=== PATIENT | male | born 1940 | race Caucasian/White ===

== ENCOUNTER → 2017-10-17 | Day surgery (SDC) | payer OTHER, MEDICARE ==
[2017-10-15 09:23] LABS: BASOPHILS # (AUTO) 0.1 (0.0-0.1); BASOPHILS % 1.2 % (0.0-1.0); EOSINOPHILS # (AUTO) 0.3 (0.0-0.4); EOSINOPHILS % 6.6 % (0.0-6.0); HEMATOCRIT 42.4 % (38.2-49.6); HEMOGLOBIN 14.4 g/dL (14.0-18.0); LYMPHOCYTES # (AUTO) 2.1 (1.0-3.2); LYMPHOCYTES % 41.6 % (18.0-39.1); MEAN CORPUSCULAR HEMOGLOBIN 31.6 pg (28-32); MEAN CORPUSCULAR VOLUME 93.2 fL (81-99); MONOCYTES # (AUTO) 0.6 (0.2-0.8); MONOCYTES % 11.2 % (4.4-11.3); NEUTROPHILS % 39.2 % (38.7-80.0); PLATELET COUNT 232 x10e3/uL (140-360); RED BLOOD COUNT 4.55 x10e6/uL (4.3-5.7); RED CELL DISTRIBUTION WIDTH 12.9 % (11.7-14.4)
--- NOTE | 2017-10-15 09:31 | Diagnostic Imaging Report ---
PROCEDURE: X-RAY CHEST, TWO VIEWS COMPARISON: None. INDICATIONS: PREOPERATIVE CHEST XRAY FOR FOOT SURGERY FINDINGS: The lungs are hyperinflated with flattening of the diaphragms and increased AP diameter of the chest. No focal airspace consolidation. Geographic high attenuation lesion along the left lateral thorax is consistent with a calcified pleural plaque, additional calcified pleural plaques are noted along the right hemidiaphragm. No airspace consolidation, pleural effusion, or pneumothorax. Tortuous thoracic aorta with an otherwise normal cardiomediastinal contour. No acute osseous abnormality. Mild reversal of the expected thoracic kyphosis may be attributable to degenerative disc changes. CONCLUSION: No acute cardiopulmonary abnormality. Hyperinflated lungs suggestive of COPD/emphysema. 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 Dictated by: Vinod Rose M.D. on 10/15/2017 at 9:36 Electronically approved by: Vinod Rose M.D. on 10/15/2017 at 9:36
[2017-10-15 09:37] LABS: ANION GAP 12.9 mmol/L (8-16); BLOOD UREA NITROGEN 16 mg/dL (7-26); BUN/CREATININE RATIO 14 (6-25); CALCIUM 9.8 mg/dL (8.4-10.2); CARBON DIOXIDE 30 mmol/L (22-29); CHLORIDE 101 mmol/L (98-107); CREATININE, SERUM 1.11 mg/dL (0.72-1.25); EST GLOMERULAR FILTRATION RATE > 60 ML/MIN (60-); GLUCOSE 102 mg/dL (74-118); POTASSIUM 3.9 mmol/L (3.5-5.1); SODIUM 140 mmol/L (136-145)
[~2017-10-17] MED LIST: BETAMETHASONE DISODIUM PHOS 6 MG/ML VIAL ONE; BUPIVACAINE HCL 0.5% INJ 30 ML VIAL INJ ONE; CEFAZOLIN SOD 1 GM VIAL ONE; DEXAMETHASONE SOD PHOS INJ 4 MG/ML VIAL ONE; EPHEDRINE SULFATE INJ 50 MG/10 ML SYR ONE; FENTANYL CITRATE/PF 100MCG/2 ML INJ ONE; KETOROLAC TROMETHAMINE 30 MG/ML VIAL ONE; LIDOCAINE HCL 1% LOCAL INJ 20 ML VIAL ONE; LIDOCAINE HCL 2% LOCAL INJ 5 ML SDV VIAL INJ ONE; LISINOPRIL10 MG PO; MIDAZOLAM HCL 2 MG/2 ML VIAL ONE; MUPIROCIN 2% OINT 22 GM TUBE ONE; ONDANSETRON HCL INJ 2 MG/ML VIAL ONE; PROPOFOL IV EMULSION 10 MG/ML 20 ML VIAL ONE; SEVOFLURANE INHAL SOLN 250 ML PEN BTL ONE
--- NOTE | 2017-10-17 10:13 | Operative Report ---
DATE OF PROCEDURE: October 17, 2017 PREOPERATIVE DIAGNOSES 1. Painful hallux valgus deformity, left foot. 2. Painful contracted hammertoe 2nd digit, left. 3. Painful contracted hammertoe 3rd digit, left. 4. Painful plantar calcaneal heel spur, left foot. 5. Painful tarsal tunnel syndrome, left foot. POSTOPERATIVE DIAGNOSES 1. Painful hallux valgus deformity, left foot. 2. Painful contracted hammertoe 2nd digit, left. 3. Painful contracted hammertoe 3rd digit, left. 4. Painful plantar calcaneal heel spur, left foot. 5. Painful tarsal tunnel syndrome, left foot. OPERATIVE PROCEDURES 1. Mario bunionectomy with screw fixation, left. 2. Arthroplasty of 2nd digit with K-wire fixation of 2nd toe, left foot. 3. Arthroplasty of 3rd digit with K-wire fixation of 3rd toe, left foot. 4. Resection of plantar calcaneal heel spur, left foot. 5. Neurolysis of tibial nerve, left foot. 6. Neurolysis of medial plantar nerve, left foot. 7. Neurolysis of lateral plantar nerve, left foot. 8. Intraoperative use of fluoroscopy. 9. Trigger point shot of cortisone. 10. Application of posterior splint. ANESTHESIA: General. HEMOSTASIS: Pneumatic thigh tourniquet. PROCEDURE IN DETAIL: Patient was taken into the operating room and placed on the operating room table in the supine position. Following induction of general anesthesia by the anesthesiologist, Webril wraps were placed on the patient's left thigh followed by application of a left thigh tourniquet. The left lower extremity was then prepped and draped in the usual aseptic manner. The following procedure was then performed: PROCEDURE #1: Mario bunionectomy with screw fixation, left foot. Attention was directed to the dorsomedial aspect of the 1st MPJ joint where a 6 cm linear incision was performed. The incision was deepened down to the joint capsule. A longitudinal capsulotomy was then performed exposing the dorsomedial exostosis of the 1st metatarsal head. Via use of an oscillating saw, dorsomedial exostosis was excised from the operation site in toto. A V-osteotomy was then performed from medial to lateral. Capital fragment was then transpositioned laterally. Upon adequate surgical and anatomical reduction utilizing proper AO technique, a 2 x 16 mm cortical screw and a 2 x 18 mm cortical screw was used to achieve stability of the osteotomy site utilizing proper AO technique. All redundant bone medial was then excised via the use of an oscillating saw and rotating bur. PROCEDURES #2 AND #3: Arthroplasty, 2nd and 3rd digits, left foot with K-wire fixation. Attention was then directed to the dorsal aspect of the 2nd and 3rd toes proximal interphalangeal joint where a 3 cm linear incision was performed. The incision was deepened down to the joint capsule. A transverse capsulotomy was then performed exposing the head of the proximal phalanx. Via the use of an oscillating saw, the head of the proximal phalanxes were excised from the operation site in toto. The 2nd and 3rd toes were still noted to be contracted. So, a 0.045 K-wire was introduced crossing the metatarsophalangeal joint to achieve proper anatomical reduction. PROCEDURES #4: Resection of plantar calcaneal heel spur, left foot. Attention was then directed to the medial aspect of the left heel where a 4-6 cm linear incision was performed. Incision was deepened down to the plantar fascial level. Plantar fascia was then clearly visualized. The medial one-half of the plantar fascia was resected from its insertion site exposing the plantar calcaneal spur. Utilizing a reciprocating bur, the plantar calcaneal spur was excised from the operation site in toto. PROCEDURE #5: Neurolysis of tibial nerve, left foot. Attention was then directed to the medial canal where a curvilinear incision was performed posterior to the medial malleolus. The incision was deepened via sharp and blunt dissection being careful to retract any vital structures and ligating superficial vessels as necessary. Once the level of the flexor retinaculum was reached, utilizing meticulous dissection, the flexor retinaculum was then cut exposing the tibial nerve. The tibial nerve was then freed from any type of adhesions via blunt dissection. The incision was then carried distally into the lali pedis. The lali pedis was freed. PROCEDURES #7 AND #8: Were performed which were neurolysis of the medial and lateral plantar nerves. The tibial nerve was noted to be bifurcated to the medial, lateral and plantars, and all adhesions surrounding the medial plantar nerves were released via blunt dissection. All areas were then copiously flushed with sterile antibiotic solution and suctioned. PROCEDURE #8: Intraoperative use of fluoroscopy was then used to make sure proper alignment fixation was achieved and proper resection of plantar calcaneal spur. Closure was then obtained utilizing 3-0 Vicryl, 4-0 Vicryl and 4-0 nylon for capsule, subcutaneous tissue and skin respectively. PROCEDURE #9: Trigger point shot of cortisone was then given to the 1st and 3rd interspace of the left foot. Also, the medial aspect of left heel. Then approximately 20 mL of 0.5% plain Marcaine plus 10 mL of 1% Xylocaine plain were used to achieve local anesthesia to the above-mentioned surgical area. Sterile dressing was applied. Upon release of the thigh tourniquet, blood hyperemia was noted to be immediate to all digits of the patient's left foot. PROCEDURE #10: Application of posterior splint. A properly placed posterior splint was then applied keeping the foot at 90 degrees with respect to the leg to try to prevent any type of postop complications. The patient was then transferred from the OR to the recovery room with vital signs stable and neurovascular status intact. No intraoperative complications were encountered. Blood loss from the surgery was minimal. Patient to remain nonweightbearing with the aid of crutches. Keep the foot elevated. Is to apply an ice pack to the ankle joint areas. Job#: [id number] SANIA
--- NOTE | 2017-10-17 10:26 | Diagnostic Imaging Report ---
PROCEDURE:X-RAY LEFT FOOT, TWO VIEWS COMPARISON:None. INDICATIONS:POST OPERATIVE LEFT FOOT SURGERY FINDINGS: See conclusion. CONCLUSION: AP and lateral post-operative views of the left foot with overlying bandage material show post-surgical changes of a bunionectomy and arthroplasty with wire and screw through the distal first metatarsal and second-third phalanges. There is surrounding soft-tissue swelling consistent with recent surgery. There is a drain present. Please refer to performing physician's notes for full details of this procedure. King Riggins D.O. Dictated by: King Riggins D.O. on 10/17/2017 at 10:31 Electronically approved by: King Riggins D.O. on 10/17/2017 at 10:31
== END | disposition home or self-care (01) ==
LOC: OR 05:02
PROVIDERS: ATTEND Podiatrist Foot Surgery
DX: M20.12 Hallux valgus (acquired), left foot (principal); M20.42 Other hammer toe(s) (acquired), left foot; M77.32 Calcaneal spur, left foot; G57.52 Tarsal tunnel syndrome, left lower limb; G58.8 Other specified mononeuropathies; I10 Essential (primary) hypertension; H91.90 Unspecified hearing loss, unspecified ear; Z01.810 Encounter for preprocedural cardiovascular examination; Z01.812 Encounter for preprocedural laboratory examination; Z01.818 Encounter for other preprocedural examination
CPT/HCPCS: 28035; 28119; 28285 ×2; 28296; 36415; 64704 ×2; 71046; 73620; 80048; 85025; 93005; C1713 ×2; J0690; J0720; J1100; J1885; J2001 ×2; J2250; J2405

== ENCOUNTER → 2018-01-22 | Day surgery (SDC) | payer OTHER, MEDICARE ==
[2018-01-16 09:37] LABS: BASOPHILS % 0.7 % (0.0-1.0); EOSINOPHILS # (AUTO) 0.5 (0.0-0.4); EOSINOPHILS % 9.8 % (0.0-6.0); HEMATOCRIT 41.2 % (38.2-49.6); HEMOGLOBIN 13.7 g/dL (14.0-18.0); LYMPHOCYTES # (AUTO) 1.9 (1.0-3.2); LYMPHOCYTES % 42.2 % (18.0-39.1); MEAN CORPUSCULAR HEMOGLOBIN 31.5 pg (28-32); MEAN CORPUSCULAR HGB CONC 33.3 g/dL (31-35); MEAN CORPUSCULAR VOLUME 94.7 fL (81-99); MONOCYTES # (AUTO) 0.5 (0.2-0.8); MONOCYTES % 10.9 % (4.4-11.3); NEUTROPHILS # (AUTO) 1.7 (2.1-6.9); NEUTROPHILS % 36.2 % (38.7-80.0); PLATELET COUNT 233 x10e3/uL (140-360); RED BLOOD COUNT 4.35 x10e6/uL (4.3-5.7); RED CELL DISTRIBUTION WIDTH 13.2 % (11.7-14.4)
[2018-01-16 09:55] LABS: ANION GAP 11.9 mmol/L (8-16); BLOOD UREA NITROGEN 14 mg/dL (7-26); BUN/CREATININE RATIO 14 (6-25); CALCIUM 9.5 mg/dL (8.4-10.2); CARBON DIOXIDE 27 mmol/L (22-29); CHLORIDE 104 mmol/L (98-107); CREATININE, SERUM 1.01 mg/dL (0.72-1.25); EST GLOMERULAR FILTRATION RATE > 60 ML/MIN (60-); GLUCOSE 105 mg/dL (74-118); POTASSIUM 3.9 mmol/L (3.5-5.1); SODIUM 139 mmol/L (136-145)
--- NOTE | 2018-01-16 11:07 | Diagnostic Imaging Report ---
PROCEDURE: Frontal and lateral views of the chest. COMPARISON: Chest radiograph 10/15/17. INDICATIONS: PREOPERATIVE CHEST XRAY FOR FOOT SURGERY FINDINGS: Lines/tubes: None. Lungs: The lungs are hyperinflated. There is no evidence of pneumonia or pulmonary edema. Pleura: Findings of calcified pleural plaques are again noted, including in the left lateral thorax and right hemidiaphragm. There is no pleural effusion or pneumothorax. Heart and mediastinum: The cardiomediastinal silhouette is unchanged. Bones: No acute bony abnormality. IMPRESSION: No acute radiographic abnormality. Emphysematous changes of the lungs. 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 Dictated by: ADAN SINHA M.D. on 01/16/2018 at 11:16 Electronically approved by: AADN SINHA M.D. on 01/16/2018 at 11:16
[~2018-01-22] MED LIST changes: +CEFAZOLIN SOD 2 GM/D5W 50ML 0 ML IV ONE; -EPHEDRINE SULFATE INJ 50 MG/10 ML SYR ONE; -MUPIROCIN 2% OINT 22 GM TUBE ONE; +NEOSTIGMINE 1 MG/ML 10ML VIAL ONE
--- NOTE | 2018-01-22 09:36 | Diagnostic Imaging Report ---
PROCEDURE:X-RAY RIGHT FOOT, TWO VIEWS COMPARISON:None. INDICATIONS:HAMERTOE SX, BUNIONECTOMY FINDINGS: See conclusion. CONCLUSION: AP and lateral post-operative views of the right foot with overlying bandage material show post-surgical changes with surgical screws traversing the distal first metatarsal and surgical pins traversing the phalanges and distal metatarsals of the second and third rays. There is surrounding soft-tissue swelling consistent with recent surgery. Please refer to performing physician's notes for full details of this procedure. Dictated by: Vinod Rose M.D. on 01/22/2018 at 9:45 Electronically approved by: Vinod Rose M.D. on 01/22/2018 at 9:45
[2018-01-22 09:50] VITALS: BP 138/92
--- NOTE | 2018-01-22 12:46 | Operative Report ---
DATE OF PROCEDURE: January 22, 2018 PREOPERATIVE DIAGNOSES: 1. Painful hallux valgus deformity right foot. 2. Painful contracted hammertoe 2nd digit right foot. 3. Painful contracted hammertoe 3rd digit right foot. 4. Painful plantar calcaneal heel spur right foot. 5. Painful tarsal tunnel syndrome right foot. POSTOPERATIVE DIAGNOSES: 1. Painful hallux valgus deformity right foot. 2. Painful contracted hammertoe 2nd digit right foot. 3. Painful contracted hammertoe 3rd digit right foot. 4. Painful plantar calcaneal heel spur right foot. 5. Painful tarsal tunnel syndrome right foot. OPERATIVE PROCEDURES: 1. Mario bunionectomy with screw fixation right foot. 2. Arthroplasty 2nd digit with K-wire fixation. 3. Arthroplasty 3rd digit with K-wire fixation. 4. Resection of plantar calcaneal spur. 5. Neurolysis tibial nerve. 6. Neurolysis medial plantar nerve. 7. Neurolysis lateral plantar nerve. 8. Intraoperative use of fluoroscopy. 9. Trigger point shot of cortisone. 10. Application of posterior splint. ANESTHESIA: General. HEMOSTASIS: Pneumatic thigh tourniquet at 350 mmHg. PROCEDURE IN DETAIL: Patient was taken into the operating room and placed on the operating room table in a supine position. Following induction of general anesthesia by the anesthesiologist, Webril wrap was placed on the patient's right thigh followed by application of a right thigh tourniquet. The right lower extremity was then prepped and draped in the usual aseptic manner, and the following procedure was then performed. Procedure number 1, Mario bunionectomy with screw fixation right foot. Attention was directed to the dorsomedial aspect of the 1st MPJ where a 6 cm linear incision was performed. The incision was deepened via sharp and blunt dissection, being careful to retract vital structures and ligate superficial vessels as necessary. Once the level of the capsule was reached, a longitudinal capsulotomy was then performed, exposing a dorsomedial exostosis to the 1st metatarsal head. Via the use of an oscillating saw and rotating bur, the dorsomedial exostosis was excised from the operation site in toto. A medial and lateral release was then performed consisting of a fibular sesamoidal ligament release and adductor tendon release. A V-osteotomy was then performed to the capital fragment. The capital fragment was then transported laterally, and utilizing proper AO technique, a 2.0, 18 mm cortical screw times 2 was used to achieve stability of the osteotomy site. All redundant bone medially was excised via the use of an oscillating saw and rotating bur. Procedures 2 and 3, arthroplasty 2nd and 3rd digits with K-wire fixation. Attention was then directed to the dorsal aspect of the above-mentioned toes overlying the proximal interphalangeal joint where a 3 cm linear incision was performed. The incision was deepened down to the joint capsule. A transverse capsulotomy was then performed, exposing the head of the proximal phalanx. Via the use of an oscillating saw, the heads of the proximal phalanxes were excised from the operation site in toto. Toes were still noted to be contracted. So, a 0.045 K-wire was introduced, crossing the metatarsophalangeal joint to achieve proper anatomical reduction. Procedure number 4, resection of plantar calcaneal heel spur. Attention was then directed to the medial aspect of the right heel where a 4 to 5 cm linear incision was performed. The incision was deepened down to the plantar fascial level. The plantar fascia was then clearly visualized. The medial one-half of the plantar fascia was then resected, and utilizing a reciprocating bur, the plantar calcaneal spur was smoothed down and excised. Procedures number 5, 6 and 7, neurolysis tibial nerve, neurolysis medial plantar nerve and neurolysis lateral plantar nerve. Attention was then directed to the medial aspect of the right talotibial joint where a curvilinear incision was performed posterior to the medial malleolus. The incision was then deepened via sharp and blunt dissection, being careful to retract vital structures and ligate any superficial vessels as necessary. Once the level of the flexor retinaculum was reached, utilizing meticulous dissection, the retinaculum was cut, exposing the tibial nerve. Tibial nerve was then neurolysed and freed from any adhesions via blunt dissection. The incision was then carried down to the lali pedis. The lali pedis was then cut utilizing Metzenbaum scissors, and the tibial nerve was then followed until the medial and lateral peroneal nerves were divided and all adhesions were freed via blunt dissection. All areas were then copiously flushed with sterile antibiotic solution and suctioned. Procedure number 8. Intraoperative use of fluoroscopy was then used to make sure proper alignment and fixation were achieved. Closure was then obtained utilizing 3-0 Vicryl, 4-0 Vicryl and 4-0 nylon for capsule, subcutaneous tissue and skin respectively. Prior to closing, a TLS drain was inserted to prevent any type of hematoma formation. Procedure number 9. A trigger point shot of cortisone was then given to the 1st and 4th interspaces of the right foot and also the plantar aspect of the right heel. Then approximately 15 to 16 mL of 0.5% plain Marcaine plus 10 mL of 1% Xylocaine plain were used to achieve local anesthesia of the above-mentioned surgical area. A sterile dressing was applied. Upon release of the thigh tourniquet, blood hyperemia was noted immediately to all digits of the patient's right foot. Procedure number 10, application of posterior splint. A properly placed posterior splint was then applied, keeping the foot at 90 degrees with respect to the leg to try to prevent any type of postoperative complications. The patient was then transferred from the OR to the recovery room with vital signs stable and neurovascular status intact. No intraoperative complications were encountered. Blood loss from the surgery was minimal. Patient is to remain nonweightbearing with the aid of crutches. No guarantees or warranties were given. Job#: [id number]
== END | disposition home or self-care (01) ==
LOC: OR 05:10
PROVIDERS: ATTEND Podiatrist Foot Surgery
DX: M20.11 Hallux valgus (acquired), right foot (principal); M20.41 Other hammer toe(s) (acquired), right foot; G57.51 Tarsal tunnel syndrome, right lower limb; Z96.653 Presence of artificial knee joint, bilateral; I10 Essential (primary) hypertension; M77.31 Calcaneal spur, right foot; Z01.812 Encounter for preprocedural laboratory examination
CPT/HCPCS: 28119; 28285 ×2; 28296; 36415; 64704; 71046; 73620; 80048; 85025; 93005; J0690; J0720; J1100; J1885; J2001 ×2; J2250; J2405; J2704; J2710; C1713